=== PATIENT | male | born 1945 | race Caucasian/White ===

== ENCOUNTER 2017-05-04 06:58 | Day surgery (SDC) | payer MEDICARE, BC ==
[2016-09-19 13:54] VITALS: O2SAT 97
[2017-05-04] MEDS ORDERED: ACETAZOLAMIDE 500 MG CER ONE (07:16)
[2017-05-04] MEDS ORDERED: CYCLOPENTOLATE 1% SOL ONE (07:18)
[2017-05-04] MEDS: PROPARACAINE HCL 0.5% OPHTHALMIC SOL ONE ×3 (07:21→08:43)
[2017-05-04] MEDS: CYCLOPENTOLATE 1% SOL LEFTEYE ONE ×2 (07:22→07:36)
[2017-05-04] MEDS: KETOROLAC 0.5% OPTH 60 DROP SOL ONE ×2 (07:23→07:37)
[2017-05-04] MEDS: PHENYLEPHRINE HCL 10% OPHTHAL SOL ONE ×2 (07:24→07:52)
[2017-05-04] MEDS ORDERED: MIDAZOLAM 2 MG/2 ML SOL ONE (08:18)
[2017-05-04] MEDS ORDERED: FENTANYL 100MCG/2ML SOL ONE (08:19)
[2017-05-04] MEDS ORDERED: LIDOCAINE HCL 1% MPF SOL ONE (08:37)
[2017-05-04] MEDS ORDERED: POVIDONE IODINE 5% SOL ONE (08:37)
[2017-05-04] MEDS ORDERED: BSS 500 ML 500 ML IR ONE (08:37)
[2017-05-04 09:28] VITALS: BP 144/84; PULSE 62; RESP 20; TEMP 98
== END 2017-05-04 09:39 | disposition home or self-care (01) | DRG 125 ==
LOC: SURG 06:58
PROVIDERS: ATTEND Ophthalmology
DX: H25.9 Unspecified age-related cataract (principal); H57.03 Miosis
CPT/HCPCS: J2250; J3010; J2001